=== PATIENT | female | born 1980 | race Caucasian/White ===

== ENCOUNTER 2018-07-21 17:59 | Emergency (ER) | payer MEDICAID ==
--- NOTE | 2018-07-21 18:27 | EDPHY ---
H & P Stated Complaint: sore throat/cough/gen malaise Time Seen by Provider: 07/21/18 18:26 HPI/ROS: HPI: This is a 38-year-old female who presents with Chief Complaint: sore throat/cough/gen malaise Location: Throat, chest, body Quality: Aching Duration: 8 days Signs and Symptoms: no fever, no nausea, + vomiting, no diarrhea, no urinary symptoms, no chest pain, no shortness of breath, no wheezing, + nonproductive cough, + sore throat, no neck stiffness, no joint pain, no swollen glands, no ear pain, no rash Timing: Rapid onset, worsening Severity: Moderate Context: Patient presents with 8 day history of sore throat, nonproductive cough, general malaise. Patient is a nonsmoker by smokes in the home. Patient reports that the cough is keeping her up at night. Patient reports that she is coughing so hard that she is vomiting. Coughing is worse at night. Denies any abdominal pain, diarrhea, urinary symptoms. Did Not receive influenza vaccine this year. Modifying Factors: [id number] cold medicine without relief Comment: ROS: A comprehensive 10 system review of systems is otherwise negative aside from elements mentioned in the history of present illness. MEDICAL/SURGICAL/SOCIAL HISTORY: Medical history: Hypertension, currently on menses Surgical history: Denies Social history: Nonsmoker is a smoker in the home. Has children. Family history noncontributory. CONSTITUTIONAL: Ill but nontoxic-appearing middle-aged white female, awake and alert, no obvious distress HEENT: Atraumatic and normocephalic, PERRL, EOMI. Nares patent; no rhinorrhea; no nasal mucosal edema. Tympanic membranes clear. Oropharynx clear, no tonsillar hypertrophy, no exudate and moist pink mucosa. Airway patent. No lymphadenopathy. No meningismus. Cardiovascular: Normal S1/S2, regular rate, regular rhythm, without murmur rub or gallop. PULMONARY/CHEST: Symmetrical and nontender. Clear to auscultation bilaterally. Good air movement. No accessory muscle usage. Dry hacking cough noted. ABDOMEN: Soft, nondistended, nontender, no rebound, no guarding, no peritoneal signs, no masses or organomegaly. No CVAT. EXTREMITIES: 2/2 pulses, strength 5/5, no deformities, no clubbing, no cyanosis or edema. NEUROLOGICAL: no focal neuro deficits. GCS 15. SKIN: Warm and dry, no erythema. no rash. Good capillary refill. Source: Patient Exam Limitations: No limitations - Personal History LMP (Females 10-55): Now Current Tetanus/Diphtheria Vaccine: Yes - Medical/Surgical History Hx Asthma: No Hx Chronic Respiratory Disease: No Hx Diabetes: No Hx Cardiac Disease: No Hx Renal Disease: No Hx Cirrhosis: No Hx Alcoholism: No Other PMH: HTN - Social History Smoking Status: Never smoked Constitutional: Initial Vital Signs Temperature (C) 36.6 C 07/21/18 18:03 Heart Rate 98 07/21/18 18:03 Respiratory Rate 18 07/21/18 18:03 Blood Pressure 182/125 H 07/21/18 18:03 O2 Sat (%) 95 07/21/18 18:03 O2 Delivery Mode Room Air Allergies/Adverse Reactions: No Known Allergies Allergy (Unverified 07/21/18 18:07) Home Medications: Medication Instructions Recorded Amoxicillin/Clavulanate Pot 875 mg PO BID #14 tab 07/21/18 [Augmentin 875 MG TAB (*)] HYDROcodone/HOMATROPINE HYCODA 1 tsp PO Q4-6PRN PRN #120 ml 07/21/18 [Hycodan Syrup (*)] predniSONE [predniSONE TAPER] 10 mg PO DAILY 6 Days ea 07/21/18 Medical Decision Making ED Course/Re-evaluation: Vital signs reviewed and shows elevated blood pressure upon arrival. No hypoxia, respiratory distress. Lung sounds are benign and doubt need for chest x-ray at this time. Doubt influenza as no fever. Patient given Augmentin, DuoNeb, prednisone 60 mg and Percocet in the emergency room Due to length of symptoms greater than 8 days; treated with antibiotics This patient was seen under the supervision of my secondary supervising physician. I evaluated care for this patient independently. Discussed this patient with Dr. Powell who did not see the patient. Differential Diagnosis: Adult fever including but not limited to viral syndromes including influenza, strep pharyngitis, urinary tract infection, pneumonia and sepsis. Departure - Departure Disposition: Home, Routine, Self-Care Clinical Impression: Lower respiratory infection Condition: Good Instructions: Acute Bronchitis (ED) Additional Instructions: Rest as much as possible until you are feeling better. Consume a minimum of 8-10 glasses of water or electrolyte fluid replacement drinks that include Gatorade, Powerade, Pedialyte. Take steroids, antibiotics, cough medicine as directed. Return to the ER immediately if you experience fevers/chills, shortness of breath, abdominal pain, inability to tolerate oral intake, or any other symptoms that concern you. Referrals: [facility],. [Clinic] - 5-7 days, if not improved Stand Alone Forms: Work Excuse Prescriptions: Amoxicillin/Clavulanate Pot [Augmentin 875 MG TAB (*)] 875 mg PO BID #14 tab HYDROcodone/HOMATROPINE HYCODA [Hycodan Syrup (*)] 1 tsp PO Q4-6PRN PRN #120 ml PRN Reason: Cough, Severe predniSONE [predniSONE TAPER] 10 mg PO DAILY 6 Days ea
[2018-07-21] MEDS ORDERED: predniSONE 20 MG TAB PO ONE (18:35)
[2018-07-21] MEDS ORDERED: OXYCODONE/APAP 5/325 TAB PO ONE (18:35)
[2018-07-21] MEDS ORDERED: AMOXICILLIN/CLAVULANATE POT 875/125 MG TAB PO ONE (18:35)
[2018-07-21] MEDS ORDERED: IPRATROPIUM/ALBUTEROL 3 ML DEYVIAL IH ONE (18:35)
[2018-07-21 19:04] VITALS: BP 175/92
== END 2018-07-21 19:02 | disposition home or self-care (01) ==
DX: J22 Unspecified acute lower respiratory infection (principal)
CPT/HCPCS: J7512